=== PATIENT | male | born 1950 | race Caucasian/White ===

== ENCOUNTER → 2017-12-16 | Day surgery (SDC) | payer MEDICARE, OTHER ==
[~2017-12-16] MED LIST: ACETAMINOPHEN 325 MG TAB ONE; ACETAMINOPHEN 325 MG TAB PO ONE; ATROPINE SULFATE 1 MG/10 ML SYR IVP ONE; BENZOCAINE UNIT DOSE SPRAY HURRICAINE MM ONE; LIDOCAINE 1% 5 ML SDV ONE; MIDAZOLAM 2 MG/2 ML VIAL IVP ONE; NS 500 ML IV ONE; PROPOFOL 200 MG/20 ML VIAL ONE; SUCCINYLCHOLINE CHLORIDE 200 MG/10 ML SYR IVP ONE; fentaNYL 100 MCG/2 ML INJ IVP ONE
[2017-12-16 07:05] LABS: INR 1.34 (0.83-1.16); PROTIME(PATIENT) 16.8 SEC (12.0-15.0)
--- NOTE | 2017-12-16 07:29 | PDHPUP ---
History & Physical Update H&P update statement: This history and physical update is based on an assessment of the patient which was completed after admission or registration (within 24 hours), but prior to the surgery/procedure. H&P update: H&P reviewed & patient examined, no change in patient's condition since H&P completed
--- NOTE | 2017-12-16 07:39 | PDANEPAE ---
ANE Past Medical History - Pulmonary History Hx Sleep Apnea: No ANE Review of Systems Review of Systems: ANE Patient History - Allergies Allergies/Adverse Reactions: No Known Allergies Allergy (Unverified 12/16/17 06:12) - Home Medications Home Medications: Aspirin 81mg (*) 12/16/17 [Last Taken Unknown] Atorvastatin Calcium 12/16/17 [Last Taken Unknown] Calcium 12/16/17 [Last Taken Unknown] Erythromycin 12/16/17 [Last Taken Unknown] Lansoprazole 12/16/17 [Last Taken Unknown] Lialda 12/16/17 [Last Taken Unknown] Lisinopril/Hydrochlorothiazide 12/16/17 [Last Taken Unknown] Magnesium 12/16/17 [Last Taken Unknown] Metoprolol Tartrate 12/16/17 [Last Taken Unknown] Vitamin D3 12/16/17 [Last Taken Unknown] Xarelto 12/16/17 [Last Taken 12/15/17 20:00] - Smoking Hx Smoking Status: Former smoker ANE Labs/Vital Signs - Labs Result Diagrams: 12/16/17 06:40 - Vital Signs Height: 182.88 cm Weight: 117.934 kg ANE Physical Exam - Airway Neck exam: decreased ROM Mallampati Score: Class 2 Mouth exam: normal dental/mouth exam - Pulmonary Pulmonary: no respiratory distress - Cardiovascular Cardiovascular: irregularly irregular - ASA Status ASA Status: III ANE Anesthesia Plan Anesthesia Plan: GA with mask
--- NOTE | 2017-12-16 08:18 | POSTANESTH ---
Post Anesthetic Evaluation Cardiovascular Status: Similar to Pre-Op Cond Respiratory Status: Similar to Pre-op Cond. Level of Consciousness/Mental Status: Can Participate in Eval Pain Control: Adequate, Prn Tx Ordered Nausea/Vomiting Control: Adequate, Prn Tx Ordered Complications Possibly Related to Anesthesia: None Noted
--- NOTE | 2017-12-16 08:44 | ECHO ---
[email or web address] [address] [address] Main: [phone] Fax: Transesophageal Echocardiography Name: PRABHJOT WINSLOW MR#: [id number] Study Date: 12/16/2017 Study Time: 07:16 AM Date of : 1950 Age: 67 year(s) Height: ( ) Weight: ( ) BSA: Gender: Male Examination: LEA Indication: pre cardioversion Image Quality: Adequate Contrast: Requested by: Presley Schroeder Heart Rate: Rhythm: BP: / Procedure Staff Chain Maker Machine: Mayela Castrejon RDCS Reading Physician: Presley Schroeder MD Requesting Provider: LEA Exam Details Conclusions: The patient was in atrial fibrillation at the time of the study. The left ventricle is normal in size with preserved LV systolic function. LVEF estimated to be 50-55%. There are no regional wall motion abnormalities. Normal LA, RA and RV chamber dimensions. Normal valvular morphology. No evidence of vegetations. Mild aortic sclerosis. Mild mitral valve regurgitation. Moderate tricuspid regurgitation. Intact interatrial septum noted on 2 dimensional imaging and agitated saline contrast study. Possible left atrial appendage thrombus versus reverberation artifact. Trivial pericardial effusion. Because of the possible left atrial appendage thrombus, plans for cardioversion were aborted. Measurements: Chambers Valvular Assessment AV/MV Valvular Assessment TV/PV Normal Normal Normal Name Value Range Name Value Range Name Value Range Additional Measurements: Findings: Left Ventricle: Normal size left ventricle. Reduced LV function. Right Ventricle: Normal size right ventricle. Normal RV function. Left Atrium: An agitated saline study was performed and was negative for intracardiac shunting. Patient: PRABHJOT WINSLOW Study Date: 12/16/2017 Page 1 of 2 07:16 AM Left Atrial Appendage: Good color flow doppler in the left atrial appendage. Normal PW-Doppler flow pattern. Cannot rule out REBECCA thrombus. Mitral Valve: The mitral valve is normal in appearance and function. Mild mitral valve regurgitation is present. No mitral stenosis is present. Aortic Valve: The aortic valve is tri-leaflet. There is no significant aortic valve regurgitation. No aortic valve stenosis is present. Tricuspid Valve: The tricuspid valve is normal in appearance and function. Moderate tricuspid regurgitation is present. Pulmonic Valve: The pulmonic valve is normal in appearance and function. There is no pulmonic regurgitation seen. Aorta: Normal size. Pericardium: Small pericardial effusion. l1n (No Signature Object) Patient: PRABHJOT WINSLOW Study Date: 12/16/2017 Page 2 of 2 07:16 AM [id number]
--- NOTE | 2017-12-16 23:04 | CPEKG ---
Test Reason : OPEN Blood Pressure : / mmHG Vent. Rate : 089 BPM Atrial Rate : 152 BPM P-R Int : 179 ms QRS Dur : 086 ms QT Int : 342 ms P-R-T Axes : 000 033 036 degrees QTc Int : 417 ms Atrial fibrillation controlled ventricular response Confirmed by Hany Burger ([id number]) on 12/16/2017 11:03:32 PM Referred By: Confirmed By:Hany Burger
== END | disposition home or self-care (01) ==
LOC: FCATH 05:43
PROVIDERS: ATTEND Internal Medicine Cardiovascular Disease
DX: I07.1 Rheumatic tricuspid insufficiency (principal); I34.0 Nonrheumatic mitral (valve) insufficiency; I48.91 Unspecified atrial fibrillation; I10 Essential (primary) hypertension; E78.5 Hyperlipidemia, unspecified
CPT/HCPCS: J0330; J2704